=== PATIENT | male | born 1995 | race American Indian/Alaskan Native ===

== ENCOUNTER 2021-03-23 08:01 | Emergency (ER) | payer SELFPAY ==
[2021-03-23] MEDS ORDERED: IBUPROFEN 800 MG TAB PO ONE (08:59)
--- NOTE | 2021-03-23 09:05 | Emergency Department Report ---
- General Chief Complaint: Upper Respiratory Infection Stated Complaint: COLD SX Time Seen by Provider: 03/23/21 08:49 Source: EMS Mode of arrival: Ambulatory Limitations: No Limitations - History of Present Illness Initial Comments: 25-year-old male presents to ED for "cold symptoms." Patient reports 2-day history of fever, body aches, cough, runny nose, posttussive emesis. Patient denies any shortness of breath. Patient states he has not taken anything at home for his symptoms. Patient states he received both doses of the COVID-19 vaccine. Patient denies receiving a flu shot this season. MD Complaint: fever, cough, nasal congestion -: days(s) (2) Severity: mild Consistency: constant Improves With: nothing Worsens With: nothing Associated Symptoms: fever, myalgias, rhinorrhea, cough, vomiting. denies: shortness of breath Treatments Prior to Arrival: none - Related Data Previous Rx's Medication Instructions Recorded Last Taken Type Benzonatate [Tessalon Perles] 100 mg PO Q8HR PRN #20 capsule 03/23/21 Unknown Rx Naproxen [Naprosyn] 500 mg PO BID #20 tablet 03/23/21 Unknown Rx Allergies Allergy/AdvReac Type Severity Reaction Status Date / Time No Known Allergies Allergy Verified 03/23/21 08:08 ED Review of Systems ROS: Stated complaint: COLD SX Other details as noted in HPI Comment: All other systems reviewed and negative Constitutional: fever ENT: congestion Respiratory: cough. denies: shortness of breath Gastrointestinal: vomiting. denies: abdominal pain, nausea Musculoskeletal: myalgia ED Past Medical Hx - Past Medical History Previous Medical History?: No - Surgical History Past Surgical History?: No - Social History Smoking Status: Current Every Day Smoker - Medications Home Medications: Home Medications Medication Instructions Recorded Confirmed Last Taken Type Benzonatate [Tessalon Perles] 100 mg PO Q8HR PRN #20 capsule 03/23/21 Unknown Rx Naproxen [Naprosyn] 500 mg PO BID #20 tablet 03/23/21 Unknown Rx ED Physical Exam - General Limitations: No Limitations General appearance: alert, in no apparent distress (Patient lying supine on exam table) - Head Head exam: Present: atraumatic, normocephalic - Eye Eye exam: Present: normal appearance, EOMI - ENT ENT exam: Present: mucous membranes moist - Neck Neck exam: Present: normal inspection - Respiratory Respiratory exam: Present: normal lung sounds bilaterally. Absent: respiratory distress, wheezes, rales - Cardiovascular Cardiovascular Exam: Present: normal rhythm, tachycardia - GI/Abdominal GI/Abdominal exam: Present: soft. Absent: distended, tenderness - Extremities Exam Extremities exam: Present: normal inspection - Neurological Exam Neurological exam: Present: alert, oriented X3 - Psychiatric Psychiatric exam: Present: normal affect, normal mood - Skin Skin exam: Present: warm, dry, intact, normal color ED Course Vital Signs 03/23/21 03/23/21 03/23/21 08:07 09:12 10:22 Temperature 99.0 F 98.8 F Pulse Rate 120 H 102 H Respiratory 16 16 20 Rate Blood Pressure 143/90 130/76 [Right] O2 Sat by Pulse 96 96 Oximetry - Reevaluation(s) Reevaluation #1: 03/23/21 09:47 Discharging nurse spoke with patient's mother over the phone. Apparently patient was sent from his mental health facility to the ED for evaluation of his cold symptoms. ED Medical Decision Making - Medical Decision Making Patient reports cold symptoms for only 2 days. Lungs are clear, patient in no respiratory distress. O2 sats are normal. Tachycardia likely secondary to his low-grade temp. Reports fever earlier. Patient given Motrin here in the ED. Patient given prescription for Naprosyn and Tessalon Perles. Advised patient that he can also try [id number] medications as well. Outpatient follow-up advised including outpatient COVID-19 testing, return precautions given. - Differential Diagnosis Viral illness, COVID-19, influenza Critical care attestation.: If time is entered above; I have spent that time in minutes in the direct care of this critically ill patient, excluding procedure time. ED Disposition Clinical Impression: Viral illness Disposition: HOME / SELF CARE / HOMELESS Is pt being admited?: No Condition: Stable Instructions: Viral Illness, Adult Additional Instructions: Outpatient COVID-19 testing is advised. Quarantine as necessary. Prescriptions: Naproxen [Naprosyn] 500 mg PO BID #20 tablet Benzonatate [Tessalon Perles] 100 mg PO Q8HR PRN #20 capsule PRN Reason: Cough Referrals: [facility] [Provider Group] - 3-5 Days PRIMARY CARE, [Primary Care Provider] - 3-5 Days [facility] [Outside] - 3-5 Days Time of Disposition: 09:06
[2021-03-23 10:24] VITALS: BP 130/76
== END 2021-03-23 09:32 | disposition home or self-care (01) ==
LOC: ED 08:01
DX: B34.9 Viral infection, unspecified (principal); F17.200 Nicotine dependence, unspecified, uncomplicated
CPT/HCPCS: 99283